=== PATIENT | male | born 1990 | race Hispanic/Latino ===

== ENCOUNTER 2018-12-14 07:00 | Outpatient (RCR) | payer OTHER | END 2018-12-16 | LOC: PT 07:00 | PROVIDERS: ATTEND Specialist | DX: S82.142A Displaced bicondylar fracture of left tibia, initial encounter for closed fracture (principal); M25.562 Pain in left knee; M25.662 Stiffness of left knee, not elsewhere classified; M62.81 Muscle weakness (generalized); R26.2 Difficulty in walking, not elsewhere classified ==

== ENCOUNTER 2018-12-18 07:00 | Outpatient (RCR) | payer OTHER | END 2019-01-16 | LOC: PT 07:00 | PROVIDERS: ATTEND Specialist | DX: M25.562 Pain in left knee (principal); S82.142A Displaced bicondylar fracture of left tibia, initial encounter for closed fracture; M62.81 Muscle weakness (generalized); R26.2 Difficulty in walking, not elsewhere classified; M25.662 Stiffness of left knee, not elsewhere classified ==